=== PATIENT | female | born 1990 | race Caucasian/White ===

== ENCOUNTER 2016-10-09 12:54 | Emergency (ER) | payer OTHER ==
--- NOTE | 2016-10-09 13:03 | EDPHY ---
H & P Stated Complaint: mid sternal chest tightness/sob since yesterday Time Seen by Provider: 10/09/16 13:03 HPI/ROS: CHIEF COMPLAINT: Dyspnea, chest tightness, epigastric pain HISTORY OF PRESENT ILLNESS: The patient presents to the ED with a 1 day history of dyspnea, chest tightness and epigastric pain. The patient denies prior history of the symptoms. She denies asymmetric calf pain or swelling. There is a slightly reproducible component of her chest pain as well as a component which is pleuritic. The patient denies any history of heart or lung disease. The patient has no risk factors for acute coronary syndrome. She denies fall or trauma. The patient does report being under a fair amount of stress secondary to her work and school. The patient denies significant past medical history. The patient does take Vyvanse on a daily basis. REVIEW OF SYSTEMS: A comprehensive 10 point review of systems is otherwise negative aside from elements mentioned in the history of present illness. Source: Patient Exam Limitations: No limitations - Personal History LMP (Females 10-55): IUD In Place Current Tetanus/Diphtheria Vaccine: Yes - Medical/Surgical History Hx Asthma: No Hx Chronic Respiratory Disease: No Hx Diabetes: No Hx Cardiac Disease: No Hx Renal Disease: No Hx Cirrhosis: No Hx Alcoholism: No Hx HIV/AIDS: No Hx Splenectomy or Spleen Trauma: No Other PMH: denies - Social History Smoking Status: Never smoked - Physical Exam Exam: General Appearance: Alert, anxious, no acute distress Eyes: Pupils equal and round no pallor or injection ENT, Mouth: Mucous membranes moist Neck: Mild tenderness to palpation over the sternal notch, no mass, no bruit Respiratory: There are no retractions, lungs are clear to auscultation Cardiovascular: Regular rate and rhythm Gastrointestinal: Abdomen is soft and nontender, no masses, bowel sounds normal Neurological: A&O, normal motor function, normal sensory exam, normal cranial nerves Skin: Warm and dry, no rashes Musculoskeletal: Neck is supple nontender Extremities: symmetrical, full range of motion Constitutional: Initial Vital Signs Temperature (C) 36.7 C 10/09/16 12:58 Heart Rate 118 H 10/09/16 12:58 Respiratory Rate 22 H 10/09/16 12:58 Blood Pressure 105/78 10/09/16 12:58 O2 Sat (%) 98 10/09/16 12:58 O2 Delivery Mode Room Air Allergies/Adverse Reactions: adhesive Allergy (Verified 10/09/16 12:56) amoxicillin trihydrate [From Augmentin] Allergy (Verified 10/09/16 12:56) potassium clavulanate [From Augmentin] Allergy (Verified 10/09/16 12:56) Home Medications: Medication Instructions Recorded Ranitidine HCl [Heartburn Relief] 150 mg PO BID #60 tablet 10/09/16 VYVANSE 10/09/16 Medical Decision Making - Diagnostics EKG Interpretation: EKG: Complete interpretation has been separately recorded in the [email or web address] archive. Summary impression: Sinus tachycardia, slight right axis deviation Imaging: Imaging Impressions Chest X-Ray 10/09/16 13:18 Impression: Probable bronchitis. ED Course/Re-evaluation: The patient presents to the ED for evaluation of chest pain and dyspnea. The patient does admit to being under a fair amount of stress. She has no risk factors for PE or DVT. The patient did undergo D-dimer testing which is negative. I feel this adequately excludes pulmonary embolism. The patient's chest x-ray demonstrates no evidence of a pneumonia or pneumothorax. Her EKG and troponin are normal. The patient has no symptoms of cough or congestion to suggest a respiratory illness or bronchitis which is subtly suggested on her chest x-ray. The patient did receive a L of normal saline. She received 1 mg of IV Ativan. The patient did undergo serial examinations by myself in the ED. The patient presents to the ED with chest pain and throat discomfort which I believe is likely secondary to dyspepsia likely precipitated by stress and poor sleep. The patient has nothing to suggest pulmonary embolism today, ischemia or a obvious life-threatening cause of chest or neck pain based upon the workup. I am recommending the patient begin taking ranitidine 150 mg twice daily in addition to using Maalox see if that improves her symptoms. The patient can follow up with her primary care on Wednesday for unimproved symptoms. I would like to her to return to the ED this weekend for any worsening symptoms or other concerns. Differential Diagnosis: Differential diagnosis considered includes pulmonary embolism, pleurisy, arrhythmia, myocarditis, pericarditis, pneumothorax - Data Points Laboratory Results: Laboratory Results 10/09/16 13:20 10/09/16 13:20 10/09/16 10/09/16 10/09/16 13:20 13:20 13:20 WBC RBC Hgb Hct MCV MCH MCHC RDW Plt Count MPV Neut % (Auto) Lymph % (Auto) [place] % (Auto) Eos % (Auto) Baso % (Auto) Nucleat RBC Rel Count Absolute Neuts (auto) Absolute Lymphs (auto) Absolute Monos (auto) Absolute Eos (auto) Absolute Basos (auto) Absolute Nucleated RBC Immature Gran % Immature Gran # D-Dimer < 0.27 ug/mLFEU ug/mLFEU (0.00-0.50) Sodium 139 mEq/L mEq/L (134-144) Potassium 3.7 mEq/L mEq/L (3.5-5.2) Chloride 104 mEq/L mEq/L (97-110) Carbon Dioxide 21 mEq/l L mEq/l (22-31) Anion Gap 14 mEq/L mEq/L (8-16) BUN 13 mg/dL mg/dL (7-23) Creatinine 0.8 mg/dL mg/dL (0.6-1.0) Estimated GFR > 60 Glucose 91 mg/dL mg/dL (70-100) Calcium 9.7 mg/dL mg/dL (8.5-10.4) Total Bilirubin 1.4 mg/dL mg/dL (0.1-1.4) Conjugated Bilirubin 0.3 mg/dL mg/dL (0.0-0.5) Unconjugated Bilirubin 1.1 mg/dL mg/dL (0.0-1.1) AST 39 IU/L IU/L (14-46) ALT 28 IU/L IU/L (9-52) Alkaline Phosphatase 54 IU/L IU/L (38-126) Troponin I < 0.012 ng/mL ng/mL (0-0.034) Total Protein 8.2 g/dL g/dL (6.3-8.2) Albumin 4.8 g/dL g/dL (3.5-5.0) Lipase 132.0 IU/L IU/L (23-300) Beta HCG, Qual NEGATIVE 10/09/16 13:20 WBC 7.79 10^3/uL 10^3/uL (3.80-9.50) RBC 4.97 10^6/uL 10^6/uL (4.18-5.33) Hgb 14.7 g/dL g/dL (12.6-16.3) Hct 43.3 % % (38.0-47.0) MCV 87.1 fL fL (81.5-99.8) MCH 29.6 pg pg (27.9-34.1) MCHC 33.9 g/dL g/dL (32.4-36.7) RDW 12.4 % % (11.5-15.2) Plt Count 249 10^3/uL 10^3/uL (150-400) MPV 11.0 fL fL (8.7-11.7) Neut % (Auto) 66.8 % % (39.3-74.2) Lymph % (Auto) 23.9 % % (15.0-45.0) [place] % (Auto) 6.5 % % (4.5-13.0) Eos % (Auto) 2.1 % % (0.6-7.6) Baso % (Auto) 0.4 % % (0.3-1.7) Nucleat RBC Rel Count 0.0 % % (0.0-0.2) Absolute Neuts (auto) 5.21 10^3/uL 10^3/uL (1.70-6.50) Absolute Lymphs (auto) 1.86 10^3/uL 10^3/uL (1.00-3.00) Absolute Monos (auto) 0.51 10^3/uL 10^3/uL (0.30-0.80) Absolute Eos (auto) 0.16 10^3/uL 10^3/uL (0.03-0.40) Absolute Basos (auto) 0.03 10^3/uL 10^3/uL (0.02-0.10) Absolute Nucleated RBC 0.00 10^3/uL 10^3/uL (0-0.01) Immature Gran % 0.3 % % (0.0-1.1) Immature Gran # 0.02 10^3/uL 10^3/uL (0.00-0.10) D-Dimer Sodium Potassium Chloride Carbon Dioxide Anion Gap BUN Creatinine Estimated GFR Glucose Calcium Total Bilirubin Conjugated Bilirubin Unconjugated Bilirubin AST ALT Alkaline Phosphatase Troponin I Total Protein Albumin Lipase Beta HCG, Qual Medications Given: Discontinued Medications Sodium Chloride (Ns) 1,000 mls @ 0 mls/hr IV ONCE ONE PRN Reason: Wide Open Stop: 10/09/16 13:19 Last Admin: 10/09/16 13:29 Dose: 1,000 mls Lorazepam (Ativan Injection) 1 mg IVP EDNOW ONE Stop: 10/09/16 13:34 Last Admin: 10/09/16 13:42 Dose: 1 mg Departure - Departure Disposition: Home, Routine, Self-Care Clinical Impression: Chest pain Condition: Good Instructions: Chest Pain (ED) Additional Instructions: 1. Please take Maalox and ranitidine as prescribed to see if that improves her symptoms. 2. Please follow up with your primary care provider for unimproved symptoms on Wednesday. 3. Please return to the emergency department this weekend for any worsening symptoms, fever, vomiting, worsening pain or other concerns. Referrals: Nedra Doyle MD [Medical Doctor] - As per Instructions
[2016-10-09] MEDS ORDERED: NS 1,000 ML IV ONE (13:18)
--- NOTE | 2016-10-09 13:21 | CPEKG ---
Heart Rate: 104 RR Interval: 577 P-R Interval: 132 QRSD Interval: 84 QT Interval: 340 QTC Interval: 448 P [place]: 79 QRS [place]: 100 T Wave [place]: 66 EKG Severity - ABNORMAL ECG - EKG Impression: SINUS TACHYCARDIA Electronically Signed By: Gil Sprague 09-Oct-2016 13:36:05
[2016-10-09] MEDS ORDERED: LORazepam 2 MG/ML INJ IVP ONE ×2 (13:33→15:35)
[2016-10-09 13:34] LABS: % IMMATURE GRANULYOCYTES 0.3 % (0.0-1.1); ABSOLUTE IMMATURE GRANULOCYTES 0.02 10^3/uL (0.00-0.10); ADD DIFF? NO; ADD MORPH? NO; ADD SCAN? NO; ATYPICAL LYMPHOCYTE FLAG 10 (0-99); FRAGMENT RBC FLAG 0 (0-99); HEMATOCRIT 43.3 % (38.0-47.0); HEMOGLOBIN 14.7 g/dL (12.6-16.3); LEFT SHIFT FLG 0 (0-99); LIPEMIA HEMOLYSIS FLAG 90 (0-99); MEAN CELL HEMOGLOBIN 29.6 pg (27.9-34.1); MEAN CELL HEMOGLOBIN CONCENTR. 33.9 g/dL (32.4-36.7); MEAN CELL VOLUME 87.1 fL (81.5-99.8); PLATELET CLUMPS FLAG 0 (0-99); PLATELET COUNT 249 10^3/uL (150-400); RED BLOOD CELL COUNT 4.97 10^6/uL (4.18-5.33); RED CELL DISTRIBUTION WIDTH 12.4 % (11.5-15.2)
[2016-10-09 13:50] LABS: ALANINE AMINOTRANSFERASE 28 IU/L (9-52); ALBUMIN 4.8 g/dL (3.5-5.0); ALKALINE PHOSPHATASE 54 IU/L (38-126); ANION GAP 14 mEq/L (8-16); ASPARTATE AMINOTRANSFERASE 39 IU/L (14-46); BILIRUBIN,TOTAL 1.4 mg/dL (0.1-1.4); BILIRUBIN-CONJUGATED 0.3 mg/dL (0.0-0.5); BILIRUBIN-UNCONJUGATED 1.1 mg/dL (0.0-1.1); CALCIUM 9.7 mg/dL (8.5-10.4); CARBON DIOXIDE 21 mEq/l (22-31); CHLORIDE 104 mEq/L (97-110); CREATININE 0.8 mg/dL (0.6-1.0); GLOMERULAR FILTRATION RATE > 60; GLUCOSE 91 mg/dL (70-100); POTASSIUM 3.7 mEq/L (3.5-5.2); SODIUM 139 mEq/L (134-144); TOTAL PROTEIN 8.2 g/dL (6.3-8.2)
[2016-10-09 14:00] LABS: TROPONIN I < 0.012 ng/mL (0-0.034)
[2016-10-09] MEDS ORDERED: MAG HYDROX/AL HYDROX/SIMETH 30 ML UDCUP PO ONE (14:42)
[2016-10-09] MEDS ORDERED: LIDOCAINE 2% VISCOUS 15 ML UDCUP PO ONE (14:42)
[2016-10-09] MEDS ORDERED: HYOSCYAMINE SULFATE 0.125 MG TAB PO ONE (14:42)
[2016-10-09] MEDS ORDERED: KETOROLAC 30 MG/1 ML SDV IVP ONE (16:45)
[2016-10-09] MEDS ORDERED: ALBUTEROL 3 ML DEYVIAL IH ONE (16:46)
[2016-10-09 17:51] VITALS: BP 94/57; PULSE 95; RESP 17; TEMP 97.7; O2SAT 96
== END 2016-10-09 17:50 | disposition home or self-care (01) ==
DX: R07.9 Chest pain, unspecified (principal)
CPT/HCPCS: 96374; J1885; J2060